=== PATIENT | female | born 1940 | race Two or more races ===

== ENCOUNTER 2022-09-27 08:40 | Outpatient (CLI) | payer OTHER | END 2022-09-27 08:53 | disposition home or self-care (01) | LOC: EDBD 08:40 → TOM 08:40 | PROVIDERS: ATTEND Internal Medicine Gastroenterology | DX: R10.32 Left lower quadrant pain (principal) | CPT/HCPCS: 74177; Q9965 ==

== ENCOUNTER 2022-10-03 09:04 | Outpatient (CLI) | payer OTHER | END 2022-10-03 09:06 | disposition home or self-care (01) | LOC: RX STUDY 09:04 | PROVIDERS: ATTEND Internal Medicine Gastroenterology | DX: K30 Functional dyspepsia (principal) ==